=== PATIENT | male | born 1985 ===

== ENCOUNTER 2023-04-04 16:21 | Emergency (ER) | payer MEDICAID ==
[2023-04-04] MEDS ORDERED: diphenhydrAMINE 50 MG/ML SDV IM ONE (16:27)
[2023-04-04] MEDS ORDERED: LORazepam 2 MG/ML SDV IM ONE ×2 (16:27→17:39)
[2023-04-04] MEDS ORDERED: Haloperidol Lactate 5 MG/ML SDV IM ONE (16:27)
[2023-04-04] MEDS ORDERED: Diphtheria,Pertussis(Acell),Tetanus Vaccine 0.5 ML Syringe IM ONE (16:30)
[2023-04-04 18:25] LABS: AMPHETAMINES,URINE POSITIVE (NEGATIVE); BARBITURATES,URINE NEGATIVE (NEGATIVE); BENZODIAZEPINE,URINE NEGATIVE (NEGATIVE); MDMA (ECSTASY), URINE NEGATIVE (NEGATIVE); METHADONE,URINE NEGATIVE (NEGATIVE); METHAMPHETAMINES,URINE POSITIVE (NEGATIVE); OPIATES,URINE NEGATIVE (NEGATIVE); OXYCODONE,URINE NEGATIVE (NEGATIVE); PHENCYCLIDINE,URINE NEGATIVE (NEGATIVE); TCA,URINE NEGATIVE (NEGATIVE)
== END 2023-04-04 18:43 ==
LOC: MERGE 16:21 → DL.ED 16:21
DX: S01.01XA Laceration without foreign body of scalp, initial encounter (principal); F15.129 Other stimulant abuse with intoxication, unspecified; Z23 Encounter for immunization
CPT/HCPCS: 12001; 36415; 80305-QW; 80307; 90471; 90715; 96372; 99283; 99285-25; C1758; J1200; J1630; J2060

== ENCOUNTER 2023-04-27 02:38 | Emergency (ER) | payer MEDICAID, OTHER | END 2023-04-27 03:05 | LOC: DL.ED 02:38 | DX: Z02.9 Encounter for administrative examinations, unspecified (principal); Z48.02 Encounter for removal of sutures | CPT/HCPCS: 99282; 99283 ==